=== PATIENT | female | born 1990 | race Caucasian/White ===

== ENCOUNTER 2019-01-04 07:04 | Inpatient (IN) | payer OTHER ==
[2019-01-04] MEDS ORDERED: Sodium Chloride 0.9% 10 ML Syringe FLUSH PRN (07:22)
[2019-01-04] MEDS ORDERED: Nalbuphine 20 MG/ML 1 ML Syringe IVPUSH PRN (07:22)
[2019-01-04] MEDS ORDERED: Ondansetron 4 MG/2 ML SDV IVPUSH PRN ×2 (07:22→10:01)
[2019-01-04] MEDS ORDERED: Oxytocin/Lactated Ringers 10 UNIT/1,000 ML BAG IV SCH ×2 (07:30)
[2019-01-04] MEDS: Lactated Ringers 1,000 ML IV SCH ×2 (07:56→14:25)
[2019-01-04] MEDS ORDERED: fentaNYL/Bupivacaine-NS 2 MCG/ML-0.125%/PF 100 ML Bag EPIDUR PRN (10:01)
[2019-01-04] MEDS ORDERED: ePHEDrine 50 MG/ML SDV IVPUSH PRN (10:01)
[2019-01-04] MEDS ORDERED: fentaNYL 100 MCG/2 ML SDV EPIDUR PRN (10:01)
--- NOTE | 2019-01-04 10:08 | PCM.PREANE ---
Preanesthetic Assessment - Anesthesia/Transfusion/Family Hx Anesthesia History: Prior Anesthesia Without Reaction Family History of Anesthesia Reaction: No Transfusion History: No Prior Transfusion(s) Intubation History: Unknown - Review of Systems General: No Symptoms Pulmonary: No Symptoms Cardiovascular: No Symptoms Gastrointestinal: No Symptoms, Constipation Neurological: No Symptoms Other: Reports: None, Sinus Problem (seasonal allergies) - Physical Assessment NPO Status Date: 01/04/19 NPO Status Time: 06:30 Pulse: 109 O2 Sat by Pulse Oximetry: 99 Respiratory Rate: 18 Blood Pressure: 126/82 Temperature: 37.6 C Vital Signs: Last Vital Signs Temp 37.6 C 01/04/19 07:18 Pulse 109 H 01/04/19 07:18 Resp 18 01/04/19 07:18 BP 126/82 01/04/19 07:18 Pulse Ox Height: 1.68 m Weight: 70.76 kg ASA Class: 2 Mental Status: Alert & Oriented x3 Airway Class: Mallampati = 2 Dentition: Reports: Normal Dentition, Caries Thyro-Mental Finger Breadths: 3 Mouth Opening Finger Breadths: 3 ROM/Head Extension: Full Lungs: Clear to Auscultation, Normal Respiratory Effort Cardiovascular: Regular Rate, Regular Rhythm, No Murmurs - Lab Values: Laboratory Last Values WBC 7.69 K/mm3 (3.98-10.04) 01/04/19 07:45 RBC 4.04 M/mm3 (3.98-5.22) 01/04/19 07:45 Hgb 12.8 gm/L (11.2-15.7) 01/04/19 07:45 Hct 37.2 % (34.1-44.9) 01/04/19 07:45 MCV 92.1 fl (79.4-94.8) 01/04/19 07:45 MCH 31.7 pg (25.6-32.2) 01/04/19 07:45 MCHC 34.4 g/dl (32.2-35.5) 01/04/19 07:45 RDW Std Deviation 43.6 fL (36.4-46.3) 01/04/19 07:45 Plt Count 146 K/mm3 (182-369) L 01/04/19 07:45 MPV 10.8 fl (9.4-12.3) 01/04/19 07:45 Neut % (Auto) 69.3 % (34.0-71.1) 01/04/19 07:45 Lymph % (Auto) 20.9 % (19.3-51.7) 01/04/19 07:45 [place] % (Auto) 7.8 % (4.7-12.5) 01/04/19 07:45 Eos % (Auto) 1.2 (0.7-5.8) 01/04/19 07:45 Baso % (Auto) 0.1 % (0.1-1.2) 01/04/19 07:45 Neut # (Auto) 5.33 K/mm3 (1.56-6.13) 01/04/19 07:45 Lymph # (Auto) 1.61 K/mm3 (1.18-3.74) 01/04/19 07:45 [place] # (Auto) 0.60 K/mm3 (0.24-0.36) H 01/04/19 07:45 Eos # (Auto) 0.09 K/mm3 (0.04-0.36) 01/04/19 07:45 Baso # (Auto) 0.01 K/mm3 (0.01-0.08) 01/04/19 07:45 Above labs reviewed and noted and within acceptable ranges to proceed with epidural if desired. 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: , Spontaneous - Infectious Disease History Infectious Disease History: Reports: Chicken Pox - Past Surgical History HEENT Surgical History: Reports: Oral Surgery Musculoskeletal Surgical History: Reports: Other (See Below) Other Musculoskeletal Surgeries/Procedures:: left foot surgery - SUBSTANCE USE Smoking Status *Q: Never Smoker Recreational Drug Use History: No - HOME MEDS Home Medications: Home Meds Vit 90/Iron Fum/Folic [ Formula] 1 tab PO DAILY 05/18/16 [ History] - CURRENT (IN HOUSE) MEDS Current Meds: Current Medications Lactated Ringer's (Ringers, Lactated) 1,000 mls @ 100 mls/hr IV ASDIRECTED RUBEN Last Admin: 01/04/19 07:56 Dose: 100 mls/hr Oxytocin/Lactated Ringer's (Pitocin In Lr 10 Units/1,000 Ml) 10 unit in 1,000 mls @ 500 mls/hr IV .CONTINUOUS RUBEN Oxytocin/Lactated Ringer's (Pitocin In Lr 10 Units/1,000 Ml) 10 unit in 1,000 mls @ 12 mls/hr IV TITRATE RUBEN; Protocol Last Titration: 01/04/19 09:59 Dose: 8 munits/min, 48 mls/hr Lidocaine HCl (Xylocaine 1%) 10 ml INJECT ONETIME ONE Stop: 01/04/19 12:01 Nalbuphine HCl (Nubain) 10 mg IVPUSH Q2H PRN PRN Reason: pain Ondansetron HCl (Zofran) 4 mg IVPUSH Q4H PRN PRN Reason: Nausea/Vomiting Sodium Chloride (Saline Flush) 10 ml FLUSH ASDIRECTED PRN PRN Reason: Keep Vein Open
[2019-01-04] MEDS ORDERED: Phenylephrine 1 MG in Sodium Chloride 0.9% 10 ML IV SCH (10:15)
[2019-01-04] MEDS ORDERED: Lidocaine 1% 50 ML MDV INJECT ONE (12:00)
--- NOTE | 2019-01-04 16:54 | PCM.LDHP ---
L&D History of Present Illness - General Date of Service: 01/04/19 Admit Problem/Dx: Patient Status Order with Admit Dx/Problem 01/04/19 07:22 Patient Status [ADT] Routine Admission Diagnosis/Problem Admission Diagnosis/Problem Source of Information: Patient History Limitations: Reports: No Limitations - History of Present Illness Introduction:: 28 year old [id number] at 39w4d here for induction of labor. PNC with myself without complications. Two prior SVDs 6#8 oz and 7#10 oz. 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: , Spontaneous - Infectious Disease History Infectious Disease History: Reports: Chicken Pox - Past Surgical History HEENT Surgical History: Reports: Oral Surgery Musculoskeletal Surgical History: Reports: Other (See Below) Other Musculoskeletal Surgeries/Procedures:: left foot surgery Social & Family History - Family History Family Medical History: Noncontributory - Tobacco Use Smoking Status *Q: Never Smoker - Caffeine Use Caffeine Use: Reports: None - Recreational Drug Use Recreational Drug Use: No H&P Review of Systems - Review of Systems: Review Of Systems: See Below General: Reports: No Symptoms HEENT: Reports: No Symptoms Pulmonary: Reports: No Symptoms Cardiovascular: Reports: No Symptoms Gastrointestinal: Reports: No Symptoms Genitourinary: Reports: No Symptoms Musculoskeletal: Reports: No Symptoms Skin: Reports: No Symptoms Psychiatric: Reports: No Symptoms Neurological: Reports: No Symptoms Hematologic/Lymphatic: Reports: No Symptoms Immunologic: Reports: No Symptoms L&D Exam - Exam Exam: See Below - Vital Signs Vital Signs: Last Vital Signs Temp 37.6 C 01/04/19 10:11 Pulse 109 H 01/04/19 10:11 Resp 18 01/04/19 10:11 BP 126/82 01/04/19 10:11 Pulse Ox 99 01/04/19 10:11 Weight: 70.76 kg - OB Specific Contraction Intensity: Irritability Movement: Active Heart Rate (FHR) Variability: Moderate (6-25 bmp) Presentation: Vertex Estimated Weight: 3000 - Lee Score Lee Score Cervix Position: Posterior Lee Score Consistency: Soft Lee Score Effacement: 31-50% Lee Score Dilation: 3-4 cm Lee Score Infant's Station: -2 Lee Score Total: 6 - Exam General: Alert, Oriented HEENT: PERRLA, Conjunctiva Clear, EACs Clear, EOMI, Hearing Intact, Mucosa Moist & [place], Nares Patent, Normal Nasal Septum, Posterior Pharynx Clear, TMs Clear Neck: Supple, Trachea Midline Lungs: Clear to Auscultation, Normal Respiratory Effort Cardiovascular: Regular Rate, Regular Rhythm GI/Abdominal Exam: Normal Bowel Sounds, Soft, Non-Tender, No Organomegaly, No Distention, No Abnormal Bruit, No Mass, Pelvis Stable Genitourinary: Normal external exam, Normal bimanual exam, Normal speculum exam Back Exam: Normal Inspection, Full Range of Motion Extremities: Normal Inspection, Normal Range of Motion, Non-Tender, No Pedal Edema, Normal Capillary Refill Skin: Warm, Dry, Intact Neurological: Cranial Nerves Intact, Reflexes Equal Bilateral Psychiatric: Alert, Normal Affect, Normal Mood - Patient Data Lab Results Last 24 hrs: Laboratory Results - last 24 hr 01/04/19 Range/Units 07:45 WBC 7.69 (3.98-10.04) K/mm3 RBC 4.04 (3.98-5.22) M/mm3 Hgb 12.8 (11.2-15.7) gm/L Hct 37.2 (34.1-44.9) % MCV 92.1 (79.4-94.8) fl MCH 31.7 (25.6-32.2) pg MCHC 34.4 (32.2-35.5) g/dl RDW Std Deviation 43.6 (36.4-46.3) fL Plt Count 146 L (182-369) K/mm3 MPV 10.8 (9.4-12.3) fl Neut % (Auto) 69.3 (34.0-71.1) % Lymph % (Auto) 20.9 (19.3-51.7) % [place] % (Auto) 7.8 (4.7-12.5) % Eos % (Auto) 1.2 (0.7-5.8) Baso % (Auto) 0.1 (0.1-1.2) % Neut # (Auto) 5.33 (1.56-6.13) K/mm3 Lymph # (Auto) 1.61 (1.18-3.74) K/mm3 [place] # (Auto) 0.60 H (0.24-0.36) K/mm3 Eos # (Auto) 0.09 (0.04-0.36) K/mm3 Baso # (Auto) 0.01 (0.01-0.08) K/mm3 Result Diagrams: 01/04/19 07:45 Problem List Initiated/Reviewed/Updated: Yes Orders Last 24hrs: Active Orders 24 hr Category Date Time Status Patient Status [ADT] Routine ADT 01/04/19 07:22 Active Activity as Tolerated [RC] PFP Care 01/04/19 07:22 Active Communication Order [RC] ASDIRECTED Care 01/04/19 07:22 Active Heart Tones [RC] ASDIRECTED Care 01/04/19 07:22 Active Non Stress Test [RC] PER UNIT ROUTINE Care 01/04/19 07:22 Active Notify Provider [RC] ASDIRECTED Care 01/04/19 10:01 Active Notify Provider [RC] PFP Care 01/04/19 07:22 Active Notify Provider [RC] PRN Care 01/04/19 07:22 Active Oxygen Therapy [RC] ASDIRECTED Care 01/04/19 10:00 Active Peripheral IV Care [RC] . DIRECTED Care 01/04/19 07:22 Active Pulse Oximetry [RC] ASDIRECTED Care 01/04/19 10:00 Active Vital Signs [RC] PER UNIT ROUTINE Care 01/04/19 07:22 Active Regular Diet [DIET] Diet 01/04/19 Breakfast Active RAPID PLASMA REAGIN,RPR [CHEM] Routine Lab 01/04/19 07:45 Received Lactated Ringers [Ringers, Lactated] 1,000 ml Med 01/04/19 07:30 Active IV ASDIRECTED Nalbuphine [Nubain] Med 01/04/19 07:22 Active 10 mg IVPUSH Q2H PRN Ondansetron [Zofran] Med 01/04/19 10:01 Active 4 mg IVPUSH ONETIME PRN Ondansetron [Zofran] Med 01/04/19 07:22 Active 4 mg IVPUSH Q4H PRN Oxytocin/Lactated Ringers [Pitocin in LR 10 Units/1,000 Med 01/04/19 07:30 Active ML] 10 unit in 1,000 ml IV .CONTINUOUS Oxytocin/Lactated Ringers [Pitocin in LR 10 Units/1,000 Med 01/04/19 07:30 Active ML] 10 unit in 1,000 ml IV TITRATE Phenylephrine [Jimmie-Synephrine] 1 mg Med 01/04/19 10:15 Active Sodium Chloride 0.9% [Normal Saline] 10 ml IV TITRATE Sodium Chloride 0.9% [Saline Flush] Med 01/04/19 07:22 Active 10 ml FLUSH ASDIRECTED PRN ePHEDrine [ePHEDrine sulfate] Med 01/04/19 10:01 Active 5 mg IVPUSH ASDIRECTED PRN fentaNYL [Sublimaze] Med 01/04/19 10:01 Active 100 mcg EPIDUR Q3H PRN fentaNYL/Bupivacaine/NS/PF [[id number]-LV 2 MCG/ML- Med 01/04/19 10:01 Active 0.125%] 100 ml EPIDUR ASDIRECTED PRN Electronic Heart Tones Ext w TOCO [WOMSER] Oth 01/04/19 07:22 Ordered Routine Electronic Heart Tones Internal [WOMSER] Per Unit Oth 01/04/19 07:22 Ordered Routine Peripheral IV Insertion Adult [OM.PC] Routine Oth 01/04/19 07:22 Ordered Resuscitation Status Routine Resus Stat 01/04/19 07:22 Ordered Medication Orders Ephedrine Sulfate (Ephedrine Sulfate) 5 mg IVPUSH ASDIRECTED PRN PRN Reason: Hypotension Stop: 01/04/19 23:00 Fentanyl (Sublimaze) 100 mcg EPIDUR Q3H PRN PRN Reason: Pain Stop: 01/04/19 23:00 Last Admin: 01/04/19 13:54 Dose: 100 mcg Fentanyl/Bupivacaine HCl (Drdmswam-Ocqjx-Bd 2 Mcg/Ml-0.125%) 100 ml EPIDUR ASDIRECTED PRN PRN Reason: Pain Stop: 01/04/19 23:00 Last Admin: 01/04/19 13:56 Dose: 100 ml Lactated Ringer's (Ringers, Lactated) 1,000 mls @ 100 mls/hr IV ASDIRECTED RUBEN Last Admin: 01/04/19 14:25 Dose: 100 mls/hr Infusion: 01/04/19 14:25 Dose: 100 mls/hr Admin: 01/04/19 07:56 Dose: 100 mls/hr Oxytocin/Lactated Ringer's (Pitocin In Lr 10 Units/1,000 Ml) 10 unit in 1,000 mls @ 500 mls/hr IV .CONTINUOUS RUBEN Oxytocin/Lactated Ringer's (Pitocin In Lr 10 Units/1,000 Ml) 10 unit in 1,000 mls @ 12 mls/hr IV TITRATE RUBEN; Protocol Last Titration: 01/04/19 16:32 Dose: 500 mls/hr Titration: 01/04/19 15:13 Dose: 12 munits/min, 72 mls/hr Titration: 01/04/19 11:15 Dose: 11 munits/min, 66 mls/hr Titration: 01/04/19 10:33 Dose: 10 munits/min, 60 mls/hr Titration: 01/04/19 09:59 Dose: 8 munits/min, 48 mls/hr Titration: 01/04/19 09:20 Dose: 6 munits/min, 36 mls/hr Titration: 01/04/19 08:35 Dose: 4 munits/min, 24 mls/hr Admin: 01/04/19 07:56 Dose: 2 munits/min, 12 mls/hr Phenylephrine HCl 1 mg/ Sodium (Chloride) 10.1 mls @ 1 mls/sec IV TITRATE RUBEN; Protocol Stop: 01/04/19 23:00 Nalbuphine HCl (Nubain) 10 mg IVPUSH Q2H PRN PRN Reason: pain Ondansetron HCl (Zofran) 4 mg IVPUSH Q4H PRN PRN Reason: Nausea/Vomiting Ondansetron HCl (Zofran) 4 mg IVPUSH ONETIME PRN PRN Reason: Nausea/Vomiting Stop: 01/04/19 23:00 Sodium Chloride (Saline Flush) 10 ml FLUSH ASDIRECTED PRN PRN Reason: Keep Vein Open Assessment/Plan Comment:: Term induction. Pitocin, CBC, Type and screen. AROM later today. Anticipate
--- NOTE | 2019-01-04 16:55 | PCM.PNLD ---
Labor Progress Note - VS & Meds Vital Signs: Last Vital Signs Temp 37.6 C 01/04/19 10:11 Pulse 109 H 01/04/19 10:11 Resp 18 01/04/19 10:11 BP 126/82 01/04/19 10:11 Pulse Ox 99 01/04/19 10:11 Active Medications: Current Medications Ephedrine Sulfate (Ephedrine Sulfate) 5 mg IVPUSH ASDIRECTED PRN PRN Reason: Hypotension Stop: 01/04/19 23:00 Fentanyl (Sublimaze) 100 mcg EPIDUR Q3H PRN PRN Reason: Pain Stop: 01/04/19 23:00 Last Admin: 01/04/19 13:54 Dose: 100 mcg Fentanyl/Bupivacaine HCl (Xgfccyzh-Epfpw-Yh 2 Mcg/Ml-0.125%) 100 ml EPIDUR ASDIRECTED PRN PRN Reason: Pain Stop: 01/04/19 23:00 Last Admin: 01/04/19 13:56 Dose: 100 ml Lactated Ringer's (Ringers, Lactated) 1,000 mls @ 100 mls/hr IV ASDIRECTED RUBEN Last Admin: 01/04/19 14:25 Dose: 100 mls/hr Oxytocin/Lactated Ringer's (Pitocin In Lr 10 Units/1,000 Ml) 10 unit in 1,000 mls @ 500 mls/hr IV .CONTINUOUS RUBEN Oxytocin/Lactated Ringer's (Pitocin In Lr 10 Units/1,000 Ml) 10 unit in 1,000 mls @ 12 mls/hr IV TITRATE RUBEN; Protocol Last Titration: 01/04/19 16:32 Dose: 500 mls/hr Phenylephrine HCl 1 mg/ Sodium (Chloride) 10.1 mls @ 1 mls/sec IV TITRATE RUBEN; Protocol Stop: 01/04/19 23:00 Nalbuphine HCl (Nubain) 10 mg IVPUSH Q2H PRN PRN Reason: pain Ondansetron HCl (Zofran) 4 mg IVPUSH Q4H PRN PRN Reason: Nausea/Vomiting Ondansetron HCl (Zofran) 4 mg IVPUSH ONETIME PRN PRN Reason: Nausea/Vomiting Stop: 01/04/19 23:00 Sodium Chloride (Saline Flush) 10 ml FLUSH ASDIRECTED PRN PRN Reason: Keep Vein Open Discontinued Medications Lidocaine HCl (Xylocaine 1%) 10 ml INJECT ONETIME ONE Stop: 01/04/19 12:01 - Uterine Contractions Uterine Monitoring Mode: External [place] Contraction Intensity: Moderate to Strong Uterine Resting Tone: Soft - Monitoring Monitor Mode: External Ultrasound Heart Rate (FHR) Baseline: 145 Heart Rate (FHR) Variability: Moderate (6-25 bmp) - Vaginal Exam Dilation (cm): 4 Effacement (Percent): 80 Cervical Position: Midposition Vaginal Exam Comment: AROM clear fluid - Labor Progress (Free Text) Labor Progress: Progressing well. AROM. Anticipate
--- NOTE | 2019-01-04 16:57 | PCM.SN ---
- Free Text/Narrative Note: Stage I - Pt presented for induction. Pitocin. AROM clear fluid. Progressed to complete with epidural anesthesia. Stage II - of viable female, 8/9 APGARS, female at 1630. head delivered in controlled manner over intact perineum. body and shoulders followed without difficulty. Positive cry. To maternal abdomen. Cord clamped and cut. Stage III - of intact placenta. 3vc. No laceration. EBL 200.
[2019-01-04] MEDS ORDERED: Lanolin 100% Cream 7 GM Tube TOP PRN (17:08)
[2019-01-04] MEDS ORDERED: Oxytocin/Lactated Ringers 10 UNIT/1,000 ML BAG IV ONE (17:15)
[2019-01-04] MEDS ORDERED: Witch Hazel Medicated Pads 40/Jar TOP PRN (17:17)
[2019-01-04] MEDS ORDERED: Benzocaine/Menthol 20%-0.5% Spray 56 GM Canister TOP PRN (17:18)
--- NOTE | 2019-01-04 18:46 | PCM48HPAN ---
Post Anesthesia Note - EVALUATION WITHIN 48HRS OF ANESTHETIC Vital Signs in Normal Range: Yes Patient Participated in Evaluation: Yes Respiratory Function Stable: Yes Airway Patent: Yes Cardiovascular Function Stable: Yes Hydration Status Stable: Yes Pain Control Satisfactory: Yes Nausea and Vomiting Control Satisfactory: Yes Mental Status Recovered: Yes
[2019-01-04] MEDS: Acetaminophen 325 MG Tab PO PRN (21:00)
[2019-01-05] MEDS: Acetaminophen 325 MG Tab PO PRN ×3 (01:06→08:55)
[2019-01-05] MEDS: Docusate Sodium 100 MG Cap PO PRN ×2 (02:30→16:07)
--- NOTE | 2019-01-05 08:41 | PCM.SN ---
- Free Text/Narrative Note: day 1 No heavy vaginal bleeding uterus involuting normally no leg cramping probably home tomorrow.
[2019-01-05] MEDS: Acetaminophen/oxyCODONE 325-5 MG Tab PO PRN ×3 (12:11→21:15)
[2019-01-06] MEDS: Acetaminophen/oxyCODONE 325-5 MG Tab PO PRN ×2 (01:53→06:15)
[2019-01-06] MEDS: Docusate Sodium 100 MG Cap PO PRN (07:53)
--- NOTE | 2019-01-06 10:33 | PCM.DCSUM1 ---
Discharge Summary - Hospital Course Free Text/Narrative:: [facility], [place], operated by [facility] Provider Simple Note Patient Name: SHELLY IQBAL Date of : 89 Patient Status: Inpatient Attending Provider: Shwetha Waldron Date: 01/04/19 16:55 Initialization Date: 01/04/19 16:55 - Free Text/Narrative Note: Stage I - Pt presented for induction. Pitocin. AROM clear fluid. Progressed to complete with epidural anesthesia. Stage II - of viable female, 8/9 APGARS, female at 1630. head delivered in controlled manner over intact perineum. body and shoulders followed without difficulty. Positive cry. To maternal abdomen. Cord clamped and cut. Stage III - of intact placenta. 3vc. No laceration. EBL 200. HPI Initial Comments: [facility], [place], operated by [facility] Provider Simple Note Patient Name: SHELLY IQBAL Date of : 89 Patient Status: Inpatient Attending Provider: Shewtha Waldron Date: 01/04/19 16:55 Initialization Date: 01/04/19 16:55 - Free Text/Narrative Note: Stage I - Pt presented for induction. Pitocin. AROM clear fluid. Progressed to complete with epidural anesthesia. Stage II - of viable female, 8/9 APGARS, female infant at 1630. head delivered in controlled manner over intact perineum. body and shoulders followed without difficulty. Positive cry. To maternal abdomen. Cord clamped and cut. Stage III - of intact placenta. 3vc. No laceration. EBL 200. Brief History: [facility], [place], operated by [facility] . Provider Simple Note. [facility]: [id number]. Date of : Patient Status: Inpatient. Attending Provider: Shwetha WaldronAccount Number: [id number]. Date: 01/04/19 16:55Initialization Date: 01/04/19 16:55. - Free Text/Narrative. Note: Stage I - Pt presented for induction. Pitocin. AROM clear fluid. Progressed to complete with epidural anesthesia. Stage II - of viable female, 8/9 APGARS, female infant at 1630. head delivered in controlled manner over intact perineum. body and shoulders followed without difficulty. Positive cry. To maternal abdomen. Cord clamped and cut. Stage III - of intact placenta. 3vc. No laceration. EBL 200. Diagnosis: Stroke: No - Discharge Data Discharge Date: 01/06/19 Discharge Disposition: Home, Self-Care 01 Condition: Good - Discharge Diagnosis/Problem(s) (1) 39 weeks gestation of SNOMED Code(s): 36062503 ICD Code: Z3A.39 - 39 WEEKS GESTATION OF Status: Acute Current Visit: Yes (2) Normal delivery at term SNOMED Code(s): 73855167 ICD Code: O80 - ENCOUNTER FOR FULL-TERM UNCOMPLICATED DELIVERY Status: Acute Current Visit: Yes - Patient Summary/Data Complications: None Consults: None Hospital Course: Uneventful - Patient Instructions Diet: Usual Diet as Tolerated Driving: Do Not Drive (48 hours) Showering/Bathing: May Shower Notify Provider of: Fever, Increased Pain, Swelling and Redness, Drainage, Nausea and/or Vomiting - Discharge Plan *PRESCRIPTION DRUG MONITORING PROGRAM REVIEWED*: Not Applicable *COPY OF PRESCRIPTION DRUG MONITORING REPORT IN PATIENT KEENAN: Not Applicable Home Medications: Home Meds Vit 90/Iron Fum/Folic [ Formula] 1 tab PO DAILY 05/18/16 [ History] Acetaminophen [Tylenol] 650 mg PO Q6H PRN tablet 01/06/19 [Rx] Benzocaine/Menthol [Dermoplast Pain Relief [place]] 1 gm TOP ASDIRECTED PRN canister 01/06/19 [Rx] Docusate Sodium [Colace] 100 mg PO BID PRN cap 01/06/19 [Rx] Lanolin [Lansinoh HPA] 1 applic TOP ASDIRECTED PRN tube 01/06/19 [Rx] Witlj Mita [Tucks] 1 pad TOP ASDIRECTED PRN pad 01/06/19 [Rx] Referrals: Shwetha Waldron MD [Primary Care Provider] - (Will call Monday for an appointment) - Discharge Summary/Plan Comment DC Time >30 min.: No - Patient Data Vitals - Most Recent: Last Vital Signs Temp 97.9 F 01/06/19 07:34 Pulse 81 01/06/19 07:34 Resp 16 01/06/19 07:34 BP 100/55 L 01/06/19 07:34 Pulse Ox 100 01/06/19 07:34 Weight - Most Recent: 156 lb I&O - Last 24 hours: Intake & Output 01/05/19 01/06/19 01/06/19 22:59 06:59 14:59 Intake Total 120 Balance 120 Med Orders - Current: Current Medications Acetaminophen (Tylenol) 650 mg PO Q4H PRN PRN Reason: Pain Last Admin: 01/05/19 08:55 Dose: 650 mg Benzocaine/Menthol (Dermoplast Pain Relief [place]) 1 gm TOP ASDIRECTED PRN PRN Reason: perineal pain Last Admin: 01/04/19 17:42 Dose: 1 applic Docusate Sodium (Colace) 100 mg PO BID PRN PRN Reason: Constipation Last Admin: 01/06/19 07:53 Dose: 100 mg Emollient Ointment (Lansinoh Hpa) 0 gm TOP ASDIRECTED PRN PRN Reason: Sore Nipples Oxycodone/Acetaminophen (Percocet 325-5 Mg) 1 - 2 tab PO Q4H PRN PRN Reason: Pain Last Admin: 01/06/19 06:15 Dose: 1 tab Witch Mita (Tucks) 1 pad TOP ASDIRECTED PRN PRN Reason: perineal pain Last Admin: 01/04/19 17:42 Dose: 1 applic Discontinued Medications Ephedrine Sulfate (Ephedrine Sulfate) 5 mg IVPUSH ASDIRECTED PRN PRN Reason: Hypotension Stop: 01/04/19 23:00 Fentanyl (Sublimaze) 100 mcg EPIDUR Q3H PRN PRN Reason: Pain Stop: 01/04/19 23:00 Last Admin: 01/04/19 13:54 Dose: 100 mcg Fentanyl/Bupivacaine HCl (Ftmtfmlh-Txxlp-Wn 2 Mcg/Ml-0.125%) 100 ml EPIDUR ASDIRECTED PRN PRN Reason: Pain Stop: 01/04/19 23:00 Last Admin: 01/04/19 13:56 Dose: 100 ml Lactated Ringer's (Ringers, Lactated) 1,000 mls @ 100 mls/hr IV ASDIRECTED RUBEN Last Admin: 01/04/19 14:25 Dose: 100 mls/hr Oxytocin/Lactated Ringer's (Pitocin In Lr 10 Units/1,000 Ml) 10 unit in 1,000 mls @ 500 mls/hr IV .CONTINUOUS RUBEN Last Admin: 01/04/19 17:30 Dose: 500 mls/hr Oxytocin/Lactated Ringer's (Pitocin In Lr 10 Units/1,000 Ml) 10 unit in 1,000 mls @ 12 mls/hr IV TITRATE RUBEN; Protocol Last Titration: 01/04/19 16:32 Dose: 500 mls/hr Phenylephrine HCl 1 mg/ Sodium (Chloride) 10.1 mls @ 1 mls/sec IV TITRATE RUBEN; Protocol Stop: 01/04/19 23:00 Oxytocin/Lactated Ringer's (Pitocin In Lr 10 Units/1,000 Ml) Confirm Administered Dose 10 unit in 1,000 mls @ as directed IV .STK-MED ONE Stop: 01/04/19 17:16 Last Admin: 01/04/19 17:19 Dose: Not Given Lidocaine HCl (Xylocaine 1%) 10 ml INJECT ONETIME ONE Stop: 01/04/19 12:01 Last Admin: 01/04/19 17:19 Dose: Not Given Nalbuphine HCl (Nubain) 10 mg IVPUSH Q2H PRN PRN Reason: pain Ondansetron HCl (Zofran) 4 mg IVPUSH Q4H PRN PRN Reason: Nausea/Vomiting Ondansetron HCl (Zofran) 4 mg IVPUSH ONETIME PRN PRN Reason: Nausea/Vomiting Stop: 01/04/19 23:00 Sodium Chloride (Saline Flush) 10 ml FLUSH ASDIRECTED PRN PRN Reason: Keep Vein Open
[2019-01-06 14:05] VITALS: BP 117/61
== END 2019-01-06 18:00 | disposition home or self-care (01) | DRG 807 ==
LOC: JD.OB 07:04 → OBSVTOIN 16:30 → JD.OB 16:31
PROVIDERS: ADMIT Obstetrics & Gynecology; ATTEND Obstetrics & Gynecology
PROC: 10E0XZZ Delivery of Products of Conception, External Approach (ICD-10-PCS; principal; 2019-01-04)
PROC: 3E033VJ Introduction of Other Hormone into Peripheral Vein, Percutaneous Approach (ICD-10-PCS; principal; 2019-01-04)
PROC: 10907ZC Drainage of Amniotic Fluid, Therapeutic from Products of Conception, Via Natural or Artificial Opening (ICD-10-PCS; principal; 2019-01-04)
PROC: 3E0R3BZ Introduction of Anesthetic Agent into Spinal Canal, Percutaneous Approach (ICD-10-PCS; 2019-01-04)
PROC: 00HU33Z Insertion of Infusion Device into Spinal Canal, Percutaneous Approach (ICD-10-PCS; 2019-01-04)
DX: O99.62 Diseases of the digestive system complicating childbirth (principal); Z37.0 Single live birth; Z3A.39 39 weeks gestation of pregnancy; K59.09 Other constipation; Z88.8 Allergy status to other drugs, medicaments and biological substances
CPT/HCPCS: 36415; 51702; 59025; 59409; 85025; 86592; A9270-GY; J2590; J2790; J3010; J7120